=== PATIENT | male | born 2000 | race Caucasian/White ===

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

== ENCOUNTER 2021-05-13 23:52 | Emergency (ER) | payer MEDICAID, OTHER ==
[~2021-05-13] VITALS: Ht 180.3 cm; Wt 74.8 kg
[2021-05-13 23:59] VITALS: BP 103/61
--- NOTE | 2021-05-14 00:01 | NUR ---
To ED bed 07
--- NOTE | 2021-05-14 01:16 | NUR ---
PT RETURN FROM RAD
--- NOTE | 2021-05-14 01:39 | NUR ---
Dr. Rouse examining patient.
[2021-05-14] MEDS ORDERED: NACL 0.9% 2,000 ML IV ONE (02:00)
[2021-05-14] MEDS ORDERED: KETOROLAC 30 MG/ML VIAL IVP ONE (02:00)
[2021-05-14] MEDS ORDERED: MORPHINE SULFATE 4 MG/ML SYR IVP ONE (02:00)
[2021-05-14 02:16] LABS: BASOPHILS % (AUTO) 0.4 % (0.0-2.0); EOSINOPHILS # (AUTO) 0.1 K/uL (0-0.4); EOSINOPHILS % (AUTO) 0.7 % (0.0-4.0); HEMATOCRIT 35.2 % (36-52); HEMOGLOBIN 12.2 g/dL (12.0-18.0); LYMPHOCYTES # (AUTO) 3.2 K/uL (2.0-11.5); LYMPHOCYTES % (AUTO) 28.4 % (20.5-51.1); MEAN CORPUSCULAR HEMOGLOBIN 30 pg (27-31); MEAN CORPUSCULAR HGB CONC 35 g/dL (33-37); MEAN CORPUSCULAR VOLUME 85.1 fL (80-94); MONOCYTES % (AUTO) 8.7 % (1.7-9.3); NEUTROPHILS # (AUTO) 6.9 K/uL (1.8-7.7); NEUTROPHILS % (AUTO) 61.8 % (42.2-75.2); PLATELET COUNT (AUTO) 235 K/uL (140-450); RED BLOOD CELL COUNT(AUTO) 4.14 MIL/uL (4.20-6.10); RED CELL DISTRIBUTION WIDTH 15.3 % (11.6-13.7); WHITE BLOOD COUNT (AUTO) 11.1 K/uL (4.8-10.8)
[2021-05-14 02:24] LABS: CREATININE 1.1 mg/dL (0.6-1.3)
--- NOTE | 2021-05-14 03:25 | NUR ---
Dr. Rouse with for E
[2021-05-14] MEDS ORDERED: oxyCODONE/APAP 5/325 MG 1 TAB TAB PO ONE (03:30)
[2021-05-14] MEDS ORDERED: HYDR-5080 PO (04:10)
--- NOTE | 2021-05-14 04:22 | NUR ---
EKG PERFORMED AT BEDSIDE. EKG READS SINUS BRADYCARDIA @ 46
[2021-05-14 04:40] VITALS: BP 106/54
--- NOTE | 2021-05-14 04:40 | NUR ---
Patient discharged with v/s stable. Written and verbal after care instructions given and explained. Patient alert, oriented and verbalized understanding of instructions. Ambulatory with steady gait. All questions addressed prior to discharge. ID band removed. Patient advised to follow up with PMD. Rx of norco given. Patient educated on indication of medication including possible reaction and side effects. Opportunity to ask questions provided and answered. Per patient, will be going home via [employer] operator.
== END 2021-05-14 04:40 | disposition home or self-care (01) ==
LOC: MED 23:52
DX: D57.00 Hb-SS disease with crisis, unspecified (principal); Z79.899 Other long term (current) drug therapy
CPT/HCPCS: 36415; 73000; 73030; 80048; 84484; 85025; 85045; 85660; 86886; 86900; 86901; 96361; 96374; 96375; 99284; J1885; J2270; J7030